=== PATIENT | male | born 1960 | race African-American/Black ===

== ENCOUNTER 2017-11-02 12:30 | Inpatient (IN) | payer OTHER ==
[2017-11-02 16:43] VITALS: BMI 29.9
--- NOTE | 2017-11-02 18:57 | HP ---
COWS - Scale Resting Pulse: 0= MO 80 or Below CIWA Score - CIWA Score Nausea/Vomitin-Mild Nausea/No Vomiting Muscle Tremors: 2 Anxiety: 2 Agitation: 2 Paroxysmal Sweats: 1-Minimal Palms Moist Orientation: 1-Uncertain about Date Tacttile Disturbances: 0-None Auditory Disturbances: 0-None Visual Disturbances: 1-Very Mild Sensitivity Headache: 2-Mild CIWA-Ar Total Score: 12 Admission ROS BHS - HPI Chief Complaint: WITHDRAWAL SYMPTOMS Allergies/Adverse Reactions: Allergies Allergy/AdvReac Type Severity Reaction Status Date / Time No Known Allergies Allergy Verified 11/02/17 16:56 History of Present Illness: 56 Y.O. MAN WITH AN 1 YEAR HISTORY OF BENZODIAZEPINE AND ALCOHOL DEPENDENCE IS HERE SEEKING DETOX. HE REPORTS HE LAST COMPLETED DETOX IN 01/2017 AT [facility]. STATES HE ATTENDS [facility] ON 11/02/17 AT [facility]. Exam Limitations: No Limitations - Ebola screening Have you traveled outside of the country in the last 21 days: No Have you had contact with anyone from an Ebola affected area: No Have you been sick,other than usual withdrawal symptoms: No - Review of Systems Constitutional: No Symptoms Reported, Chills, Changes in sleep, Unintentional Wgt. Loss EENT: reports: Tearing Respiratory: reports: No Symptoms reported Cardiac: reports: No Symptoms Reported GI: reports: No Symptoms Reported : reports: No Symptoms Reported Musculoskeletal: reports: No Symptoms Reported Integumentary: reports: No Symptoms Reported Neuro: reports: No Symptoms reported Endocrine: reports: No Symptoms Reported Hematology: reports: No Symptoms Reported Psychiatric: reports: Anxious, Depressed Other Systems: Reviewed and Negative Patient History - Patient Medical History Hx Anemia: No Hx Asthma: No Hx Chronic Obstructive Pulmonary Disease (COPD): No Hx Cancer: No Hx Cardiac Disorders: No Hx Congestive Heart Failure: No Hx Hypertension: Yes Hx Hypercholesterolemia: No Hx Pacemaker: No HX Cerebrovascular Accident: No Hx Seizures: No Hx Dementia: No Hx Diabetes: No Hx Gastrointestinal Disorders: No Hx Liver Disease: No Hx Genitourinary Disorders: No Hx Sexually Transmitted Disorders: No Hx Renal Disease (ESRD): No Hx Thyroid Disease: No Hx Human Immunodeficiency Virus (HIV): No Hx Hepatitis C: No Hx Depression: Yes Hx Suicide Attempt: No Hx Bipolar Disorder: No Hx Schizophrenia: No - Patient Surgical History Past Surgical History: Yes Hx Neurologic Surgery: No Hx Cataract Extraction: No Hx Cardiac Surgery: No Hx Lung Surgery: No Hx Breast Surgery: No Hx Breast Biopsy: No Hx Abdominal Surgery: No Hx Appendectomy: No Hx Cholecystectomy: No Hx Genitourinary Surgery: No Hx Section: No Hx Orthopedic Surgery: Yes (right hip replacement in 01/31/2017) Anesthesia Reaction: No - PPD History Previous Implant?: Yes Documented Results: Negative w/o proof Implanted On Prior [facility] Admission?: No PPD to be Administered?: Yes - Reproductive History Patient is a Female of Child Bearing Age (11 -55 yrs old): No - Smoking Cessation Smoking history: Current every day smoker Have you smoked in the past 12 months: Yes Aproximately how many cigarettes per day: 20 Hx Chewing Tobacco Use: No Initiated information on smoking cessation: Yes 'Breaking Loose' booklet given: 11/02/17 - Substance & Tx. History Hx Alcohol Use: Yes Hx Substance Use: Yes Substance Use Type: Alcohol, Tranquilizers Hx Substance Use Treatment: Yes (DETOX: 01/2017 AT [facility] ) - Substances Abused Alcohol-vodka Route: Oral Frequency: Daily Amount used: 1 pt. Age of first use: 21 Date of Last Use: 11/01/17 Xanax Route: Oral Frequency: Daily Amount used: 2 mg. Age of first use: 55 Date of Last Use: 11/01/17 Family Disease History - Family Disease History Family Disease History: Diabetes: Sister Admission Physical Exam S - Vital Signs Vital Signs: Vital Signs - 24 hr 11/02/17 16:41 Temperature 95.5 F L Pulse Rate 112 H Respiratory 19 Rate Blood Pressure 134/86 - Physical General Appearance: Yes: Irritable, Sweating, Anxious HEENTM: Yes: Hearing grossly Normal, Normal ENT Inspection, Normocephalic Respiratory: Yes: Chest Non-Tender, Lungs Clear, Normal Breath Sounds, No Respiratory Distress, No Accessory Muscle Use Neck: Yes: No masses,lesions,Nodules, Trachea in good position Breast: Yes: Breast Exam Deferred Cardiology: Yes: Regular Rhythm, Tachycardia Abdominal: Yes: Normal Bowel Sounds, Non Tender Genitourinary: Yes: Within Normal Limits Back: Yes: Normal Inspection Musculoskeletal: Yes: full range of Motion, Gait Steady, Pelvis Stable Extremities: Yes: Normal Inspection, Normal Range of Motion, Non-Tender Neurological: Yes: Alert, Normal Mood/Affect, Normal Response Integumentary: Yes: Normal Color, Dry, Warm Lymphatic: Yes: Within Normal Limits - Diagnostic (1) Alcohol dependence with uncomplicated withdrawal Current Visit: Yes Status: Chronic (2) Sedative, hypnotic or anxiolytic dependence with withdrawal, uncomplicated Current Visit: Yes Status: Chronic (3) Nicotine dependence Current Visit: Yes Status: Chronic (4) Hypertension Current Visit: Yes Status: Chronic Cleared for Admission [facility] - Detox or Rehab [facility] Level of Care: Medically Managed Detox Regimen/Protocol: Valium [facility] Breath Alcohol Content Breath Alcohol Content: 0 Urine Drug Screen - Results Drug Screen Negative: No Urine Drug Screen Results: BZO-Benzodiazepines, MTD-Methadone
[2017-11-02] MEDS ORDERED: MENTHOL/PHENOL 1 EACH UD MM PRN (19:02)
[2017-11-02] MEDS ORDERED: MAG HYDROX/AL HYDROX/SIMETH 30 ML UNIT-DOSE CUP PO PRN (19:02)
[2017-11-02] MEDS ORDERED: guaiFENesin/D-METHORPHAN HB 10 ML UNIT-DOSE CUPS PO PRN (19:02)
[2017-11-02] MEDS ORDERED: IBUPROFEN 400 MG TABLET (FP) PO PRN (19:02)
[2017-11-02] MEDS ORDERED: MAGNESIUM CITRATE 300 ML BOTTLE PO PRN (19:02)
[2017-11-02] MEDS ORDERED: LOPERAMIDE HCL 2 MG CAPSULE PO PRN (19:02)
[2017-11-02] MEDS ORDERED: P-EPHED 60MG/TRIPROLIDI 2.5MG TABLET PO PRN (19:02)
[2017-11-02] MEDS ORDERED: diazePAM 5 MG TABLET PO ONE (19:02)
[2017-11-02] MEDS ORDERED: ACETAMINOPHEN 325 MG TABLET (FP) PO PRN (19:02)
[2017-11-02] MEDS ORDERED: MELATONIN 5 MG TABLETS PO PRN (22:00)
[2017-11-02] MEDS: diazePAM 5 MG TABLET PO SCH (22:21)
[2017-11-02] MEDS: THIAMINE HCL 100 MG TABLET (FP) PO SCH (22:21)
[2017-11-02] MEDS: hydrOXYzine PAMOATE 50 MG CAPSULE (FP) PO PRN (22:25)
[2017-11-02] MEDS: NICOTINE POLACRILEX 2 MG GUM BC PRN (22:26)
[2017-11-03] MEDS: diazePAM 5 MG TABLET PO SCH ×3 (06:12→22:23)
[2017-11-03] MEDS: MAGNESIUM HYDROX 2400MG/30ML ORAL SUSPENSION 30 ML CUP PO PRN (06:14)
[2017-11-03] MEDS: NICOTINE POLACRILEX 2 MG GUM BC PRN ×4 (06:45→17:51)
[2017-11-03] MEDS: hydrOXYzine PAMOATE 50 MG CAPSULE (FP) PO PRN ×2 (06:57→22:24)
[2017-11-03] MEDS: diazePAM 5 MG TABLET PO PRN ×3 (07:30→17:41)
[2017-11-03] MEDS ORDERED: METHADONE HCL 40 MG DISPERSABLE TABLET PO SCH (07:45)
[2017-11-03] MEDS ORDERED: METHADONE HCL 10 MG TABLET ONE (07:57)
[2017-11-03] MEDS ORDERED: METHADONE HCL 5 MG TABLET ONE (07:57)
[2017-11-03] MEDS: METHADONE 20 MG, METHADONE 5 MG PO SCH (07:58)
[2017-11-03] MEDS: PRENATAL VITAMINS W/ FOLIC ACID TABLET (FP) PO SCH (10:12)
[2017-11-03] MEDS: NICOTINE 21 MG/24 HOURS TOPICAL PATCH TD SCH (10:13)
--- NOTE | 2017-11-03 10:38 | EKG ---
Test Reason : Blood Pressure : / mmHG Vent. Rate : 105 BPM Atrial Rate : 105 BPM P-R Int : 156 ms QRS Dur : 082 ms QT Int : 358 ms P-R-T Axes : 037 037 036 degrees QTc Int : 473 ms SINUS TACHYCARDIA OTHERWISE NORMAL ECG NO PREVIOUS ECGS AVAILABLE Confirmed by SHE CHEEK MD ([id number]) on 11/03/2017 10:38:18 AM Referred By: Confirmed By:SHE CHEEK MD
[2017-11-03 11:16] LABS: URINE APPEARANCE CLEAR; URINE BILIRUBIN NEGATIVE (<2.0 mg/dL); URINE BLOOD NEGATIVE (NEGATIVE); URINE COLOR YELLOW; URINE GLUCOSE (UA) NEGATIVE (NEGATIVE); URINE KETONE NEGATIVE (NEGATIVE); URINE LEUK ESTERASE NEGATIVE (NEGATIVE); URINE NITRITE NEGATIVE (NEGATIVE); URINE PROTEIN NEGATIVE (NEGATIVE); URINE UROBILINOGEN 4.0 E.U/dl mg/dL (0.2-1.0)
[2017-11-03 11:30] LABS: CHLORIDE 102 mmol/L (98-107); HEMATOCRIT 53.5 % (35.4-49); HEMOGLOBIN 17.4 GM/dL (11.7-16.9); MCH 29.4 pg (25.7-33.7); MCHC 32.5 g/dl (32.0-35.9); MEAN CELL VOLUME 90.4 fl (80-96); MEAN PLT VOLUME 9.2 fl (7.5-11.1); PLATELET COUNT 178 K/MM3 (134-434); POTASSIUM 3.7 mmol/L (3.5-5.1); RBC 5.91 M/mm3 (4.00-5.60); RDW 16.9 % (11.9-15.9); SODIUM 140 mmol/L (136-145); WHITE BLOOD COUNT 8.8 K/mm3 (4.0-10.0)
[2017-11-03 11:46] LABS: ALBUMIN 3.6 g/dl (3.4-5.0); ANION GAP 9 (8-16); BILIRUBIN,TOTAL 0.3 mg/dL (0.2-1.0); BLOOD UREA NITROGEN 15 mg/dL (7-18); CO2 29 mmol/L (21-32); CREATININE 0.9 mg/dL (0.7-1.3); GLUCOSE,RANDOM 116 mg/dL (74-106); SGOT/AST 28 U/L (15-37); SGPT/ALT 30 U/L (12-78); TOT PROT 7.2 g/dl (6.4-8.2)
[2017-11-03 12:14] LABS: ALK PHOS 109 U/L (45-117)
--- NOTE | 2017-11-03 12:25 | CONSULT ---
[facility] Psychiatric Consult - Data Date of interview: 11/03/17 Admission source: [facility] Identifying data: First admission to [facility] for this 56 y/o AA male seeking detox treatment on for opioid,alcohol and xanax dependence.Patient is single,a father of two,domiciled,unemployed and supported on SSI benefits. Substance Abuse History: Confirmed by patient in this interview.Details in current [facility] report : Smoking history: Current every day smoker. Have you smoked in the past 12 months: Yes. Aproximately how many cigarettes per day: 20. Hx Chewing Tobacco Use: No. Initiated information on smoking cessation: Yes. 'Breaking Loose' booklet given: 11/02/17. - Substance & Tx. History. Hx Alcohol Use: Yes. Hx Substance Use: Yes. Substance Use Type: Alcohol, Tranquilizers. Hx Substance Use Treatment: Yes (DETOX: 01/2017 AT [facility] ) . - Substances Abused. Alcohol-vodka. Route: Oral. Frequency: Daily. Amount used: 1 pt. Age of first use: 21. Date of Last Use: 11/01/17. Xanax. Route: Oral. Frequency: Daily. Amount used: 2 mg. Age of first use: 55. Date of Last Use: 11/01/17 Medical History: Hypertension a history of right hip replacement. Psychiatric History: Patient denies history of psychiatric hospitalizations or suicide attempts.Mr Palomino is currently on [facility] ([facility]. Physical/Sexual Abuse/Trauma History: No history. Additional Comment: Urine Drug Screen Results: BZO-Benzodiazepines, MTD- Methadone.Noted. Mental Status Exam - Mental Status Exam Alert and Oriented to: Time, Place, Person Cognitive Function: Good Patient Appearance: Well Groomed Mood: Withdrawn Affect: Appropriate, Normal Range Patient Behavior: Fatigued, Appropriate, Cooperative Speech Pattern: Clear Voice Loudness: Normal Thought Process: Intact, Goal Oriented Thought Disorder: Not Present Hallucinations: Denies Suicidal Ideation: Denies Homicidal Ideation: Denies Insight/Judgement: Poor Sleep: Fair Appetite: Good Muscle strength/Tone: Normal Gait/Station: Normal Psychiatric Findings - Problem List ([place] 1, 2,3) (1) Alcohol dependence with uncomplicated withdrawal Current Visit: Yes Status: Acute (2) Sedative, hypnotic or anxiolytic dependence with withdrawal, uncomplicated Current Visit: Yes Status: Acute (3) Nicotine dependence Current Visit: Yes Status: Acute - Initial Treatment Plan Initial Treatment Plan: Psychoeducation.Detoxification.Observation.
[2017-11-03] MEDS: PATIENT'S OWN MEDICATION (NON-FORMULARY) (Lisinopril/Hydrochlorothiazide [Zestoretic 20-12 PO SCH (13:20)
--- NOTE | 2017-11-03 13:25 | PN ---
[facility] CIWA - CIWA Score Nausea/Vomitin-No Nausea/No Vomiting Muscle Tremors: 2 Anxiety: 6 Agitation: 5 Paroxysmal Sweats: 3 Orientation: 0-Oriented Tacttile Disturbances: 2-Mild Itch/Numbness/Burn Auditory Disturbances: 0-None Visual Disturbances: 0-None Headache: 0-None Present CIWA-Ar Total Score: 18 BHS Progress Note (SOAP) Subjective: Interrupted Sleep, Sweating, Anxious (severe). Objective: PATIENT A & O X 3, OBSERVED AMBULATING ON UNIT. NO ACUTE DISTRESS. 11/03/17 13:22 Vital Signs Temperature 97.3 F L 11/03/17 12:57 Pulse Rate 105 H 11/03/17 12:57 Respiratory Rate 18 11/03/17 12:57 Blood Pressure 122/86 11/03/17 12:57 O2 Sat by Pulse Oximetry (%) Laboratory Tests 11/03/17 11/03/17 11/03/17 08:00 08:00 08:00 WBC 8.8 RBC 5.91 H Hgb 17.4 H Hct 53.5 H MCV 90.4 MCH 29.4 MCHC 32.5 RDW 16.9 H Plt Count 178 MPV 9.2 Sodium 140 Potassium 3.7 Chloride 102 Carbon Dioxide 29 Anion Gap 9 BUN 15 Creatinine 0.9 Creat Clearance w eGFR > 60 Random Glucose 116 H Calcium 9.0 Total Bilirubin 0.3 AST 28 ALT 30 Alkaline Phosphatase 109 Total Protein 7.2 Albumin 3.6 Urine Color Yellow Urine Appearance Clear Urine pH 6.0 Ur Specific [place] 1.018 Urine Protein Negative Urine Glucose (UA) Negative Urine Ketones Negative Urine Blood Negative Urine Nitrite Negative Urine Bilirubin Negative Urine Urobilinogen 4.0 e.u/dl Ur Leukocyte Esterase Negative LABS NOTED. RPR RESULT PENDING. 11/03/17 13:24 Assessment: 11/03/17 13:22 WITHDRAWAL SYMPTOMS. Plan: CONTINUE DETOX. INCREASE DAILY PO FLUID INTAKE. PRN VALIUM FOR ANXIETY.
[2017-11-03] MEDS: amLODIPine BESYLATE 10 MG TABLET (FP) PO SCH (13:47)
[2017-11-03] MEDS: THIAMINE HCL 100 MG TABLET (FP) PO SCH (22:23)
[2017-11-03] MEDS ORDERED: cloNIDine HCL 0.1 MG TABLET PO PRN (23:32)
[2017-11-04] MEDS: diazePAM 5 MG TABLET PO PRN ×3 (00:45→17:35)
[2017-11-04] MEDS ORDERED: METHADONE HCL 5 MG TABLET ONE (03:31)
[2017-11-04] MEDS ORDERED: METHADONE HCL 10 MG TABLET ONE (03:31)
[2017-11-04] MEDS: METHADONE 20 MG, METHADONE 5 MG PO SCH (05:37)
[2017-11-04] MEDS: NICOTINE POLACRILEX 2 MG GUM BC PRN ×3 (07:31→20:23)
[2017-11-04] MEDS: PRENATAL VITAMINS W/ FOLIC ACID TABLET (FP) PO SCH (10:08)
[2017-11-04] MEDS: NICOTINE 21 MG/24 HOURS TOPICAL PATCH TD SCH (10:08)
[2017-11-04] MEDS: PATIENT'S OWN MEDICATION (NON-FORMULARY) (Lisinopril/Hydrochlorothiazide [Zestoretic 20-12 PO SCH (10:08)
[2017-11-04] MEDS: amLODIPine BESYLATE 10 MG TABLET (FP) PO SCH (10:08)
[2017-11-04] MEDS: diazePAM 5 MG TABLET PO SCH ×2 (10:09→21:45)
--- NOTE | 2017-11-04 13:19 | PN ---
S CIWA - CIWA Score Nausea/Vomitin Muscle Tremors: 4-Moderate,w/Arms Extend Anxiety: 4-Mod. Anxious/Guarded Agitation: 4-Moderately Restless Paroxysmal Sweats: 3 Orientation: 0-Oriented Tacttile Disturbances: 1-Very Mild Itch/Numbness Auditory Disturbances: 0-None Visual Disturbances: 0-None Headache: 1-Very Mild CIWA-Ar Total Score: 20 S Progress Note (SOAP) Subjective: Interrupted sleep, tremor, anxiety, feeling depressed (requesting to see psychiatrist, doesn't take any meds at home for anxiety/depression; denies SI, HI, AH, VH) Objective: 11/04/17 13:16 Last Vital Signs Temp Pulse Resp BP Pulse Ox 97.6 F 94 H 20 162/98 11/04/17 09:18 11/04/17 09:18 11/04/17 09:18 11/04/17 09:18 Laboratory Tests 11/03/17 11/03/17 11/03/17 08:00 08:00 08:00 WBC 8.8 RBC 5.91 H Hgb 17.4 H Hct 53.5 H MCV 90.4 MCH 29.4 MCHC 32.5 RDW 16.9 H Plt Count 178 MPV 9.2 Sodium 140 Potassium 3.7 Chloride 102 Carbon Dioxide 29 Anion Gap 9 BUN 15 Creatinine 0.9 Creat Clearance w eGFR > 60 Random Glucose 116 H Calcium 9.0 Total Bilirubin 0.3 AST 28 ALT 30 Alkaline Phosphatase 109 Total Protein 7.2 Albumin 3.6 Urine Color Urine Appearance Urine pH Ur Specific [place] Urine Protein Urine Glucose (UA) Urine Ketones Urine Blood Urine Nitrite Urine Bilirubin Urine Urobilinogen Ur Leukocyte Esterase RPR Titer Nonreactive 11/03/17 08:00 WBC RBC Hgb Hct MCV MCH MCHC RDW Plt Count MPV Sodium Potassium Chloride Carbon Dioxide Anion Gap BUN Creatinine Creat Clearance w eGFR Random Glucose Calcium Total Bilirubin AST ALT Alkaline Phosphatase Total Protein Albumin Urine Color Yellow Urine Appearance Clear Urine pH 6.0 Ur Specific [place] 1.018 Urine Protein Negative Urine Glucose (UA) Negative Urine Ketones Negative Urine Blood Negative Urine Nitrite Negative Urine Bilirubin Negative Urine Urobilinogen 4.0 e.u/dl Ur Leukocyte Esterase Negative RPR Titer Labs noted Assessment: 11/04/17 13:17 Withdrawal symptoms Plan: Continue detox Encouraged to drink more water for hydration Psychiatry consult ordered for anxiety/depression; encouraged hydroxyzine prn for anxiety
[2017-11-04] MEDS: MAGNESIUM HYDROX 2400MG/30ML ORAL SUSPENSION 30 ML CUP PO PRN (15:31)
[2017-11-04] MEDS: hydrOXYzine PAMOATE 50 MG CAPSULE (FP) PO PRN ×2 (19:35→23:31)
[2017-11-04] MEDS: THIAMINE HCL 100 MG TABLET (FP) PO SCH (21:46)
[2017-11-04 22:06] VITALS: BP 128/90; PULSE 95; TEMP 98.2
--- NOTE | 2017-11-05 00:26 | PN ---
[facility] Progress Note Note: INFORMED CLIENT WITH DRUG SEEKING BEHAVIOR, REQUESTING VICODIN, AMBIEN AND PERCOCETS, BECAME AGITATED AND GRABBED A SHEET FROM [employer] [facility] AND STATED HE WANTS TO HANG HIMSELF. CLIENT STATES HE IS WITHDRAWING AND FEELING UNCOMFORTABLE. STATED HE JUST WANTS SOME ATTENTION. CLIENT NOTED SEATED IN CHAIR WITH SECURITY PRESENT IN A CALM STATE A/O X3 NAD Vital Signs Temperature 98.2 F 11/04/17 22:05 Pulse Rate 95 H 11/04/17 22:05 Respiratory Rate 20 11/04/17 22:05 Blood Pressure 128/90 11/04/17 22:05 O2 Sat by Pulse Oximetry (%) T.96.2 B/P 128/86 P93 R18 D/W CLIENT THAT HE WILL BE TRANSFERRED TO [facility] FOR PSYCH CLEARANCE. CLIENT STATED TO FELISHA SHEA HE DOES NOT WANT TO RETURN AFTER BEING TRANSFERRED. LEFT FACILITY WITH ALL PERSONAL PROPERTY SUICIDAL IDEATION TRANSFER CLIENT 911 TO [facility] FOR EMERGENCY PSYCH EVAL DR. ONEL FRANKLIN AWARE OF CASE. INFORMED TO [facility] PT.
--- NOTE | 2017-11-05 00:44 | DS ---
[facility] Detox Discharge Summary Admission Date: 11/02/17 Discharge Date: 11/05/17 - History Present History: Alcohol Dependence Pertinent Past History: HTN NICOTINE DEPENDENCE - Physical Exam Results Vital Signs: Vital Signs Temperature 98.2 F 11/04/17 22:05 Pulse Rate 95 H 11/04/17 22:05 Respiratory Rate 20 11/04/17 22:05 Blood Pressure 128/90 11/04/17 22:05 O2 Sat by Pulse Oximetry (%) - Treatment Hospital Course: Discharged Condition Good (MEDICALLY STABLE PT DC VIA [address] [facility] ER FOR SUICIDAL IDEATION) - Medication Discharge Medications: Ambulatory Orders Amlodipine Besylate [Norvasc -] 10 mg PO DAILY 11/02/17 Lisinopril/Hydrochlorothiazide [Zestoretic 20-12.5 mg Tablet] 1 each PO DAILY - Diagnosis (1) Alcohol dependence with uncomplicated withdrawal Current Visit: Yes Status: Acute (2) Hypertension Current Visit: Yes Status: Chronic Qualifiers: Hypertension type: essential hypertension Qualified Code(s): I10 - Essential (primary) hypertension (3) Methadone maintenance therapy patient Current Visit: Yes Status: Chronic (4) Nicotine dependence Current Visit: Yes Status: Chronic Qualifiers: Nicotine product type: cigarettes Substance use status: uncomplicated Qualified Code(s): F17.210 - Nicotine dependence, cigarettes, uncomplicated (5) Sedative, hypnotic or anxiolytic dependence with withdrawal, uncomplicated Current Visit: Yes Status: Acute - AMA Did Patient Leave Against Medical Advice: No (DC VIA 911 FOR EMERGENCY PSYCH EVAL FOR SI)
[2017-11-06] MEDS ORDERED: diazePAM 5 MG TABLET PO SCH (10:00)
== END 2017-11-05 00:40 | disposition short-term general hospital (02) | DRG 897 ==
LOC: YASAS 12:30 → Y3N 19:35
PROVIDERS: ADMIT Internal Medicine; ATTEND Internal Medicine
PROC: HZ2ZZZZ Detoxification Services for Substance Abuse Treatment (ICD-10-PCS; principal; 2017-11-02)
DX: F19.230 Other psychoactive substance dependence with withdrawal, uncomplicated (principal); F11.20 Opioid dependence, uncomplicated; R45.851 Suicidal ideations; F13.230 Sedative, hypnotic or anxiolytic dependence with withdrawal, uncomplicated; F10.230 Alcohol dependence with withdrawal, uncomplicated; F17.210 Nicotine dependence, cigarettes, uncomplicated; F41.9 Anxiety disorder, unspecified; F32.9 Major depressive disorder, single episode, unspecified; I10 Essential (primary) hypertension
CPT/HCPCS: 36415; 80053; 81003; 85027; 86593; 93005; 93010; J0735